=== PATIENT | male | born 1940 | race Caucasian/White ===

== ENCOUNTER 2018-07-28 15:45 | Emergency (ER) | payer OTHER ==
--- NOTE | 2018-07-28 16:24 | ER Document Report ---
ED Medical Screen (RME) - General Chief Complaint: Cough Stated Complaint: COUGH Time Seen by Provider: 07/28/18 16:19 Primary Care Provider: MARCO POPE MD [Primary Care Provider] - Follow up as needed Mode of Arrival: Ambulatory Information source: Patient Notes: Patient presents emergency department with complaints of cough for years that is worse since he quit smoking 4 days ago. Reports the cough has worsened since he quit smoking 4 days ago. Reports he had a cough for a long time. Denies other symptoms such as fever chest pain shortness of breath vomiting diarrhea. I have greeted and performed a rapid initial assessment of this patient. A comprehensive ED assessment and evaluation of the patient, analysis of test results and completion of the medical decision making process will be conducted by additional ED providers. Dictation of this chart was performed using voice recognition software; therefore, there may be some unintended grammatical errors. TRAVEL OUTSIDE OF THE [place] IN LAST 30 DAYS: No - Related Data Allergies/Adverse Reactions: Iodinated Contrast- Oral and IV Dye Allergy (Verified 07/28/18 16:22) iodine Allergy (Verified 07/28/18 16:22) Penicillins Allergy (Verified 07/28/18 16:22) Past Medical History - Social History Chew tobacco use (# tins/day): No Frequency of alcohol use: None Drug Abuse: None Renal/ Medical History: Denies: Hx Peritoneal Dialysis Physical Exam - Vital signs Vitals: Temp Pulse Resp BP Pulse Ox 98.2 F 81 16 125/49 L 98 07/28/18 15:49 07/28/18 15:49 07/28/18 15:49 07/28/18 15:49 07/28/18 15:49 Course - Vital Signs Vital signs: Temp Pulse Resp BP Pulse Ox 98.2 F 91 16 136/51 H 96 07/28/18 23:24 07/28/18 23:24 07/28/18 15:50 07/28/18 23:24 07/28/18 23:24 Doctor's Discharge - Discharge Clinical Impression: Cough Condition: Good Disposition: HOME, SELF-CARE Instructions: Cough Suppressant & Expectorant Medications Additional Instructions: You have been evaluated in the Emergency Department for cough. While here, you had a chest x-ray that was normal and it is now safe to be discharged home. Please follow-up with your primary physician as instructed in 1 week to be rechecked. Return to the Emergency Department if you experience chest pain, difficulty breathing, shortness of breath, swelling in your legs, or any other concerning symptoms. Prescriptions: Azithromycin [Zithromax 250 mg Tablet] 250 mg PO ASDIR PRN #6 tablet PRN Reason: Hydrocodone/Chlorphen P-Stirex [Tussionex Pennkinetic Susp] 5 ml PO BID #120 amos.er.12h Referrals: MARCO POPE MD [Primary Care Provider] - Follow up as needed Print Language: Angolan
--- NOTE | 2018-07-28 16:44 | RADIOLOGY REPORT (SQ) ---
EXAM DESCRIPTION: CHEST 2 VIEWS COMPLETED DATE/TIME: 07/28/2018 4:36 pm REASON FOR STUDY: cough COMPARISON: None. EXAM PARAMETERS: NUMBER OF VIEWS: two views TECHNIQUE: Digital Frontal and Lateral radiographic views of the chest acquired. RADIATION DOSE: NA LIMITATIONS: none FINDINGS: LUNGS AND PLEURA: Hyperinflation of the lungs and flattening of the diaphragms, findings suggest COPD. Mildly prominent interstitial markings in the lungs, may be on a chronic basis with ac sienna superimposed inflammatory changes not entirely excluded. In the left lower lung, focal mixed air space and interstitial opacity, may represent infiltrate/atelectasis. No pneumothorax or pleural eff usion. MEDIASTINUM AND HILAR STRUCTURES: No masses or contour abnormalities. HEART AND VASCULAR STRUCTURES: Heart normal size. No evidence for failure. BONES: No acute findings. HARDWARE: None in the chest. OTHER: No other significant finding. IMPRESSION: 1. Findings of COPD. Focal mixed airspace-interstitial opacity at the left lung base m ay be on the basis of infiltrate/atelectasis. 2. Mildly prominent interstitial markings in the lungs, may represent chronic changes. The possibil ity of acute superimposed inflammatory changes not entirely excluded. TECHNICAL DOCUMENTATION: JOB ID: [id number] [employer]- All Rights Reserved Reading location - IP/workstation name: [email or web address]
--- NOTE | 2018-07-28 21:18 | ER Document Report ---
ED Respiratory Problem - General Chief Complaint: Cough Stated Complaint: COUGH Time Seen by Provider: 07/28/18 21:18 Primary Care Provider: MARCO POPE MD [Primary Care Provider] - Follow up as needed Mode of Arrival: Ambulatory Information source: Patient Notes: HISTORY OF PRESENT ILLNESS: Patient is a 77-year-old male with a past medical history of COPD who presents with 4-5 days of worsening cough that is nonproductive. The patient feels that his symptoms began after he stopped smoking, denies fevers or shortness of breath, no known sick contacts. Otherwise the patient has no complaints. Location: Chest Onset: 4-5 days ago Provocation: "It started after I quit smoking" Quality: Nonproductive cough Radiation: None Severity: Mild Timing: Constant Associated symptoms: No fevers or chills, no shortness of breath, no chest pain REVIEW OF SYSTEMS: CONSTITUTIONAL : Denies fever or chills, no sweats. Denies recent illness. EENT: Denies eye, ear, throat, or mouth pain or symptoms. Denies nasal or sinus congestion. CARDIOVASCULAR: Denies chest pain. RESPIRATORY: Positive for cough and congestion. Denies shortness of breath, difficulty breathing, or wheezing. GASTROINTESTINAL: Denies abdominal pain. Denies nausea, vomiting, or diarrhea. Denies constipation. GENITOURINARY: Denies difficulty urinating, painful urination, burning, freque ncy, or blood in urine. MUSCULOSKELETAL: Denies neck or back pain or joint pain or swelling. SKIN: Denies rash or skin lesions. HEMATOLOGIC : Denies easy bruising or bleeding. LYMPHATIC: Denies swollen, enlarged glands. NEUROLOGICAL: Denies altered mental status or loss of consciousness. Denies headache. Denies weakness or paralysis or loss of use of either side. Denies problems with gait or speech. Denies sensory or motor loss. PSYCHIATRIC: Denies anxiety or stress or depression. All other systems reviewed and negative. PHYSICAL EXAMINATION: GENERAL: Well-appearing, well-nourished and in no acute distress. HEAD: Atraumatic, normocephalic. No scalp deformity, depression, or crepitance. EYES: Pupils are 3 mm and equal/round/reactive to light, extraocular movements intact, sclera anicteric, conjunctiva are normal. ENT: Nares patent bilaterally, oropharynx clear without exudates or palatal petechia. Moist mucous membranes. No tonsil hypertrophy. NECK: Normal range of motion, supple without lymphadenopathy. LUNGS: Breath sounds present, equal, and clear to auscultation bilaterally. No wheezes, rales, or rhonchi. HEART: Regular rate and rhythm without murmurs, rubs, or gallops. 2+ peripheral pulses. Normal capillary refill. ABDOMEN: Soft, nontender, nondistended. Normoactive bowel sounds. No guarding, no rebound. No masses appreciated. BACK: Normal contour, no midline tenderness. Rectal exam deferred. GENITAL: Deferred. EXTREMITIES: Normal range of motion, no pitting or edema. No cyanosis. NEUROLOGICAL: No focal neurological deficits. Moves all extremities spontaneously and on command. PSYCH: Normal mood, normal affect. No suicidal thoughts/ideations. No homicidal thoughts/ideations. No hallucinations. SKIN: Warm, dry, normal turgor, no rashes or lesions noted. ASSESSMENT AND PLAN: This patient is a 77-year-old male who presents with nonproductive cough that is most likely viral syndrome versus bronchitis versus pneumonia. Chest x-ray is negative. 1. Will give oral azithromycin and discharged home with return precautions and follow-up with his primary physician. 2. The patient voices both understanding and agreeing with the plan. TRAVEL OUTSIDE OF THE [place] IN LAST 30 DAYS: No - Related Data Allergies/Adverse Reactions: Iodinated Contrast- Oral and IV Dye Allergy (Verified 07/28/18 16:22) iodine Allergy (Verified 07/28/18 16:22) Penicillins Allergy (Verified 07/28/18 16:22) Past Medical History - General Information source: Patient - Social History Smoking Status: Current Every Day Smoker Chew tobacco use (# tins/day): No Frequency of alcohol use: None Drug Abuse: None Lives with: Family Family History: Reviewed & Not Pertinent Patient has suicidal ideation: No Patient has homicidal ideation: No - Past Medical History Cardiac Medical History: Reports: None Pulmonary Medical History: Reports: Hx COPD EENT Medical History: Reports: None Neurological Medical History: Reports: None Endocrine Medical History: Reports: None Renal/ Medical History: Reports: None. Denies: Hx Peritoneal Dialysis Malignancy Medical History: Reports None GI Medical History: Reports: None Musculoskeletal Medical History: Reports None Skin Medical History: Reports None Psychiatric Medical History: Reports: None Traumatic Medical History: Reports: None Infectious Medical History: Reports: None Past Surgical History: Reports: Hx Cholecystectomy, Hx Nose Surgery - Immunizations Immunizations up to date: Yes Hx Diphtheria, Pertussis, Tetanus Vaccination: Yes History of Influenza Vaccine for 01/2018 - 06/2018 Season: Unknown Physical Exam - Vital signs Vitals: Temp Pulse Resp BP Pulse Ox 98.2 F 81 16 125/49 L 98 07/28/18 15:49 07/28/18 15:49 07/28/18 15:49 07/28/18 15:49 07/28/18 15:49 Course - Vital Signs Vital signs: Temp Pulse Resp BP Pulse Ox 98.2 F 81 16 116/53 L 98 07/28/18 15:50 07/28/18 15:50 07/28/18 15:50 07/28/18 15:50 07/28/18 15:50 - Diagnostic Test Radiology reviewed: Image reviewed, Reports reviewed Discharge - Discharge Clinical Impression: Cough Condition: Good Disposition: HOME, SELF-CARE Instructions: Cough Suppressant & Expectorant Medications Additional Instructions: You have been evaluated in the Emergency Department for cough. While here, you had a chest x-ray that was normal and it is now safe to be discharged home. Please follow-up with your primary physician as instructed in 1 week to be reche cked. Return to the Emergency Department if you experience chest pain, difficulty breathing, shortness of breath, swelling in your legs, or any other concerning symptoms. Prescriptions: Azithromycin [Zithromax 250 mg Tablet] 250 mg PO ASDIR PRN #6 tablet PRN Reason: Hydrocodone/Chlorphen P-Stirex [Tussionex Pennkinetic Susp] 5 ml PO BID #120 amos.er.12h Referrals: MARCO POPE MD [Primary Care Provider] - Follow up as needed Print Language: Swedish
[2018-07-28] MEDS ORDERED: AZITHROMYCIN 250 MG TABLET PO ONE (22:25)
[2018-07-28] MEDS ORDERED: GUAIFENESIN/D-METHORPHAN (200-20 MG) SYRUP 10 ML PO ONE (22:25)
[2018-07-28 23:56] VITALS: BP 136/51
== END 2018-07-28 23:55 | disposition home or self-care (01) ==
LOC: ER 15:45
DX: J44.9 Chronic obstructive pulmonary disease, unspecified (principal); R05 Cough; R09.89 Other specified symptoms and signs involving the circulatory and respiratory systems; Z91.040 Latex allergy status; Z88.0 Allergy status to penicillin
CPT/HCPCS: 99283; 71046; J3490

== ENCOUNTER → 2019-03-01 | Outpatient (CLI) | payer OTHER ==
--- NOTE | 2019-03-01 10:04 | RADIOLOGY REPORT (SQ) ---
EXAM DESCRIPTION: CT LUNG CANCER SCREENING COMPLETED DATE/TIME: 03/01/2019 8:15 am REASON FOR STUDY: PULMONARY FIBROSIS Has the patient had a Chest CT scan within the past year? N Was the patient offered tobacco cessation counseling? Y Was the patient engaged in shared decision making for this test? Y Does the patient have signs or symptoms of Lung Cancer? N Is the patient a smoker? N How many pack years? 60 How many years since quitting smoking? 0.8 Patients age: 78 COMPARISON: None. TECHNIQUE: Low Dose CT scan performed of the chest without intravenous contrast for purposes of scre ening for lung cancer. Images reviewed with lung, soft tissue and bone windows. Reconstructed coron al and sagittal MPR images reviewed. All images stored on PACS. All CT scanners at this facility use dose modulation, iterative reconstruction, and/or weight based d osing when appropriate to reduce radiation dose to as low as reasonably achievable (ALARA). [facility]: Dose Right [facility]: CareDose [facility]: Dose Right [facility]: Teradose 4D [facility]: [employer] RADIATION DOSE: CT Rad equipment meets quality standard of care and radiation dose reduction techniq ues were employed. CTDIvol: 2.0 mGy. DLP: 85 mGy-cm. LIMITATIONS: No technical limitations. FINDINGS: LUNGS AND PLEURA: There are 2 coexisting interstitial processes ; the 1st is severe centr ilobular and paraseptal emphysema and a 2nd is a lower-lobe predominant process that is characterized by subpleural reticulation, traction bronchiectasis with scattered areas of subsegmental mucous plug ging, architectural distortion and the absence of honeycombing. The spiculated nodular opacity in th e left lower lobe (image 202 of series 3) that measures 2.1 x 1.8 cm could represent part of the afor ementioned interstitial process and if available outside CTs could be obtained for direct comparison. There are several other ill-defined nodular opacities scattered throughout the left lower lung (mehul ge 125 of series 3), right middle (image 198 of series 3), right lower (image 213 of series 3) and ri ght upper lobes (image 89 of series 3) that all measure less than 6 mm. There is no alveolar consolidation. There is no pleural effusion, thickening or calcification HILAR AND MEDIASTINAL STRUCTURES: No enlarged mediastinal or hilar adenopathy. HEART AND VASCULAR STRUCTURES: There is atherosclerotic calcification of the aortic arch. The thorac ic aorta is normal in caliber. There is no cardiomegaly or pericardial effusion. CORONARY ARTERY CALCIFICATIONS: Moderate to severe. UPPER ABDOMEN, THYROID, BONES, OTHER SOFT TISSUES: The circumferential mural thickening of the distal thoracic esophagus. The gallbladder is surgically absent. There is no acute abnormality of the mehul ged osseous structures. IMPRESSION: 1. 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 The 2.1 x 1.8 cm spiculated nodular opacity in the le ft lower lobe (image 202 of series 3) could be part of the latter interstitial process and if availab le outside CTs could be obtained for direct comparison. 2. Circumferential mural thickening of the distal thoracic esophagus - the finding is nonspecific an d could be related to a hiatal hernia. Consider further evaluation with EGD or esophagram. LUNGRADS: MODIFIER: S CLINICALLY SIGNIFICANT OR POTENTIALLY CLINICALLY SIGNIFICANT FINDINGS. (non marylou ng cancer) RECOMMENDATION: Obtain outside CTs for direct comparison of the aforementioned left lower lobe nodul ar opacity and continue annual screening with LDCT in 12 months. TECHNICAL DOCUMENTATION: JOB ID: [id number] Quality ID # [id number]: Final reports with documentation of one or more dose reduction techniques (e.g., Au tomated exposure control, adjustment of the mA and/or kV according to patient size, use of iterative reconstruction technique) 2010 [facility] Reading location - IP/workstation name: [email or web address]
== END ==
LOC: RAD 07:44
PROVIDERS: ATTEND Physician Assistant
DX: Z12.2 Encounter for screening for malignant neoplasm of respiratory organs (principal); J84.10 Pulmonary fibrosis, unspecified
CPT/HCPCS: G0297

== ENCOUNTER 2019-08-30 16:40 | Emergency (ER) | payer OTHER, MEDICARE ==
[2019-08-30 18:39] LABS: A TYPE INFLUENZA AG NEGATIVE (NEGATIVE); B INFLUENZA AG NEGATIVE (NEGATIVE)
--- NOTE | 2019-08-30 19:38 | ER Document Report ---
ED ENT - General Chief Complaint: Sore Throat Stated Complaint: THROAT ISSUES Time Seen by Provider: 08/30/19 18:37 Primary Care Provider: [facility] [Provider [facility]] - Follow up as needed [facility] [Provider Group] - Follow up as needed [facility] [Provider Group] - Follow up as needed Notes: 79-year-old male presented to ED for difficulty swallowing at home. He states he only had one episode where when he tried to swallow he coughed and coughed and coughed up a large amount of phlegm. When I examined the patient he was able to swallow but he did cough up another large mucous plug. He states it feels like it is in the back of his throat. He does have signs and symptoms of an upper respiratory infection. His flu and strep were negative. He has been screened for the COVID she will be informed of the results. He is in no acute distress. He has no other signs or symptoms. TRAVEL OUTSIDE OF THE [place] IN LAST 30 DAYS: No - HPI Patient complains to provider of: Other - Difficulty swallowing one time earlier today Onset: Other - Earlier Severity: None Pain Level: Denies Associated symptoms: Difficulty swallowing - 1 time earlier today no difficulty now, Sinus drainage Similar symptoms previously: No Recently seen / treated by doctor: No - Related Data Allergies/Adverse Reactions: Iodinated Contrast Media [Iodinated Contrast- Oral and IV Dye] Allergy (Verified 08/30/19 17:11) iodine Allergy (Verified 08/30/19 17:11) Penicillins Allergy (Verified 08/30/19 17:11) Past Medical History - General Information source: Patient - Social History Smoking Status: Former Smoker Chew tobacco use (# tins/day): No Drug Abuse: None Family History: Reviewed & Not Pertinent Patient has homicidal ideation: No - Past Medical History Cardiac Medical History: Reports: None Pulmonary Medical History: Reports: Hx COPD EENT Medical History: Reports: None Neurological Medical History: Reports: None Endocrine Medical History: Reports: None Renal/ Medical History: Reports: None Malignancy Medical History: Reports None GI Medical History: Reports: None Musculoskeletal Medical History: Reports None Skin Medical History: Reports None Psychiatric Medical History: Reports: None Traumatic Medical History: Reports: None Infectious Medical History: Reports: None Past Surgical History: Reports: Hx Cholecystectomy, Hx Nose Surgery - Immunizations Immunizations up to date: Yes Hx Diphtheria, Pertussis, Tetanus Vaccination: Yes Review of Systems - Review of Systems Constitutional: No symptoms reported EENT: No symptoms reported, Difficulty swallowing - States when he tried to swallow he coughed up a lot of phlegm. He was able to drink water with no difficulty when I examined him Cardiovascular: No symptoms reported Respiratory: No symptoms reported Gastrointestinal: No symptoms reported Genitourinary: No symptoms reported Male Genitourinary: No symptoms reported Musculoskeletal: No symptoms reported Skin: No symptoms reported Hematologic/Lymphatic: No symptoms reported Neurological/Psychological: No symptoms reported Physical Exam - Vital signs Vitals: Temp Pulse Resp BP Pulse Ox 98 F 74 18 126/59 H 99 08/30/19 17:11 08/30/19 17:11 08/30/19 17:11 08/30/19 17:11 08/30/19 17:11 Interpretation: Normal - General General appearance: Appears well, Alert - HEENT Head: Normocephalic, Atraumatic Eyes: Normal Pupils: PERRL Ears: Normal External canal: Normal Tympanic membrane: Normal Sinus: Normal Nasal: Purulent discharge, Swelling Mouth/Lips: Normal Mucous membranes: Normal Pharynx: Post nasal drainage Neck: Normal - Respiratory Respiratory status: No respiratory distress Chest status: Nontender Breath sounds: Normal Chest palpation: Normal - Cardiovascular Rhythm: Regular Heart sounds: Normal auscultation Murmur: No - Abdominal Inspection: Normal Distension: No distension Bowel sounds: Normal Tenderness: Nontender Organomegaly: No organomegaly - Back Back: Normal, Nontender - Extremities General upper extremity: Normal inspection, Nontender, Normal color, Normal ROM, Normal temperature General lower extremity: Normal inspection, Nontender, Normal color, Normal ROM, Normal temperature, Normal weight bearing. No: Criss's sign - Neurological Neuro grossly intact: Yes Cognition: Normal Orientation: AAOx4 Darrell Coma Scale Eye Opening: Spontaneous [place] Coma Scale Verbal: Oriented [place] Coma Scale Motor: Obeys Commands [place] Coma Scale Total: 15 Speech: Normal Motor strength normal: LUE, RUE, LLE, RLE Sensory: Normal - Psychological Associated symptoms: Normal affect, Normal mood - Skin Skin Temperature: Warm Skin Moisture: Dry Skin Color: Normal Course - Vital Signs Vital signs: Temp Pulse Resp BP Pulse Ox 98.0 F 75 20 143/64 H 97 08/30/19 20:05 08/30/19 20:05 08/30/19 20:05 08/30/19 20:05 08/30/19 20:05 Discharge - Discharge Clinical Impression: URI (upper respiratory infection) Qualifiers: URI type: unspecified viral URI Qualified Code(s): J06.9 - Acute upper respiratory infection, unspecified Condition: Stable Disposition: HOME, SELF-CARE Additional Instructions: UPPER RESPIRATORY ILLNESS: You have a viral infection of the respiratory passages -- a "cold." This common infection causes nasal congestion, drainage, and often sore throat and cough. It is highly contagious. The disease usually lasts about 10 to 14 days. There is no "cure" for the viral infection -- it must run its course. If there is a complication, such as bacterial infection in the nose, sinuses, middle ear, or bronchial tubes, antibiotics may be required. The antibiotics won't affect the virus. Drink plenty of fluids. A humidifier may help. An expectorant medication or decongestant may make you more comfortable. Use acetaminophen or ibuprofen for fever or aches. See the doctor if fever persists over two days, if there is any significant worsening of your symptoms, or if you simply fail to improve as expected. USE OF ACETAMINOPHEN (Tylenol): Acetaminophen may be taken for pain relief or fever control. It's much safer than aspirin, offering a wider range of "safe" dosages. It is safe during . Some brand names are Tylenol, Panadol, Datril, Anacin 3, Tempra, and Liquiprin. Acetaminophen can be repeated every four hours. The following are maximum recommended dosages: >89 pounds or adults 650 mg to 900 mg Acetaminophen can be repeated every four hours. Maximum dose not to exceed 4000 mg a day. FOLLOW-UP CARE: If you have been referred to a physician for follow-up care, call the physicians office for an appointment as you were instructed or within the next two days. If you experience worsening or a significant change in your symptoms, notify the physician immediately or return to the Emergency Department at any time for re-evaluation. Follow-up with your primary care doctor or 1 of the following providers that I have given you. I have noted the coronavirus screening. They will contact you with the results. Forms: Elevated Blood Pressure Referrals: [facility] [Provider Group] - Follow up as needed [facility] [Provider Group] - Follow up as needed [facility] [Provider Group] - Follow up as needed
[2019-08-30 20:23] VITALS: BP 143/64
== END 2019-08-30 20:46 | disposition home or self-care (01) ==
LOC: ER 16:40
DX: Z03.818 Encounter for observation for suspected exposure to other biological agents ruled out (principal); J06.9 Acute upper respiratory infection, unspecified; J02.9 Acute pharyngitis, unspecified; R13.10 Dysphagia, unspecified; R05 Cough; Z88.0 Allergy status to penicillin; Z88.8 Allergy status to other drugs, medicaments and biological substances; Z87.891 Personal history of nicotine dependence; J44.9 Chronic obstructive pulmonary disease, unspecified
CPT/HCPCS: 87070; 87635; 87804; 87880; 99283

== ENCOUNTER → 2019-10-04 | Outpatient (CLI) | payer MEDICARE, OTHER | LOC: OD 08:09 | PROVIDERS: ATTEND Internal Medicine Pulmonary Disease | DX: J84.10 Pulmonary fibrosis, unspecified (principal) | CPT/HCPCS: 36415; 86021; 86225; 86235; 86431 ==